=== PATIENT | male | born 1955 | race Caucasian/White ===

== ENCOUNTER → 2022-02-07 | Outpatient (CLI) | payer MEDICARE ==
[2022-02-07 14:12] LABS: INR 1.18; PROTHROMBIN TIME 15.5 SECONDS (12.7-14.5)
[2022-02-07 14:29] LABS: HEPATITIS B SURFACE ANTIBODY NEGATIVE (POSITIVE); HEPATITIS B SURFACE ANTIGEN NEGATIVE (NEGATIVE)
== END ==
LOC: M PLALAB 09:51
PROVIDERS: ATTEND Internal Medicine Infectious Disease
DX: K70.31 Alcoholic cirrhosis of liver with ascites (principal); Z86.19 Personal history of other infectious and parasitic diseases

== ENCOUNTER → 2022-02-19 | Outpatient (CLI) | payer MEDICARE ==
[2022-02-19 14:14] LABS: FREE T4 1.15 NG/DL (0.76-1.46); TOTAL PROTEIN 7.7 GM/DL (6.4-8.2)
[2022-02-19 14:42] LABS: VITAMIN B12 LEVEL 1639 PG/ML
[2022-02-19 14:43] LABS: FOLATE > 24.0 NG/ML
[2022-02-19 15:19] LABS: HEMOGLOBIN A1c 5.6 %
== END ==
LOC: M PLALAB 10:31
PROVIDERS: ATTEND Psychiatry & Neurology Neurology
DX: E53.8 Deficiency of other specified B group vitamins (principal); E11.9 Type 2 diabetes mellitus without complications; E07.9 Disorder of thyroid, unspecified; G62.9 Polyneuropathy, unspecified

== ENCOUNTER 2022-09-02 10:41 | Day surgery (SDC) | payer MEDICARE ==
[~2022-09-02] VITALS: Ht 180.3 cm; Wt 82.9 kg
[~2022-09-02 10:41] MED LIST: ALBU8.5H INH; CALC600T61 PO; CITA20TA6 PO; CVS1CAP5 PO; FOLI1TAB11 PO; FURO40TA2 PO; GABA-282 PO; K-TA10TA PO; LIDOCAINE 2% 100MG/5ML SDV (FOR ANES.) As Ordered ONE; MAGN400T2 PO; METH-1165 PO; NS 1,000 ML IV ONE; OMEP-173 PO; SODI1TAB12 PO; SPIR12.9 INH; SPIR50TA4 PO; TAMS1CAP17 PO; THIA100TA PO; VITMTA PO; [UNRECOGNIZED DRUG - CODE] PO; propofoL 200 MG/20 ML VIAL As Ordered ONE
[2022-09-02 13:14] VITALS: BP 116/72
== END 2022-09-02 13:19 | disposition home or self-care (01) ==
LOC: M OPP 10:41
PROVIDERS: ATTEND Internal Medicine Gastroenterology
DX: K22.89 Other specified disease of esophagus (principal); K44.9 Diaphragmatic hernia without obstruction or gangrene; K31.7 Polyp of stomach and duodenum; K74.60 Unspecified cirrhosis of liver; B19.10 Unspecified viral hepatitis B without hepatic coma; I10 Essential (primary) hypertension; J44.9 Chronic obstructive pulmonary disease, unspecified; N40.0 Benign prostatic hyperplasia without lower urinary tract symptoms; F17.210 Nicotine dependence, cigarettes, uncomplicated; Z79.1 Long term (current) use of non-steroidal anti-inflammatories (NSAID); Z79.51 Long term (current) use of inhaled steroids; Z79.52 Long term (current) use of systemic steroids; Z79.82 Long term (current) use of aspirin; Z79.891 Long term (current) use of opiate analgesic; Z79.899 Other long term (current) drug therapy; Z88.0 Allergy status to penicillin; Z85.51 Personal history of malignant neoplasm of bladder

== ENCOUNTER 2023-04-30 07:48 | Day surgery (SDC) | payer MEDICARE, MEDICAID ==
[~2023-04-30] VITALS: Ht 180.3 cm; Wt 94.3 kg
[~2023-04-30 07:48] MED LIST changes: +ASPI81TA26 PO; +BSS IRRIG/VANCO(10MG)/TOBRA(5MG)/EPINEPH(1:1000-0.5CC)500ML BAG-ORONLY IR ONE; +CALC-364; +CYCLOPENTOLATE 1% OPHTH SOLN 2ML BTL OD SCH; -K-TA10TA PO; +LIDOCAINE 1% SDV 5ML VIAL As Ordered ONE; -LIDOCAINE 2% 100MG/5ML SDV (FOR ANES.) As Ordered ONE; +LIDOCAINE 3.5 % 1ML OPHTH TOPICAL GEL OU ONE; +MIDAZOLAM INJ 2MG/2ML VIAL As Ordered ONE; -NS 1,000 ML IV ONE; +OFLOXACIN 0.3 % (OCUFLOX) OPTH SOL 5ML OD ONE; +PHENYLEPHRINE 10% OPHTH SOL 5ML OD PRN; +PHENYLEPHRINE 2.5% OPHTH SOL 2ML OD SCH; +POTA-164 PO; +TROPICAMIDE 1% OPHTH SOLN 15ML OD SCH; +fentaNYL 100 MCG/2 ML INJECTION As Ordered ONE; -propofoL 200 MG/20 ML VIAL As Ordered ONE
[2023-04-30] MEDS ORDERED: CEFUROXIME 1MG/0.1ML INTRACAMERAL INJ As Ordered ONE (08:58)
[2023-04-30 09:33] VITALS: BP 105/64; TEMP 97.2; O2SAT 95
[2023-05-12] MEDS ORDERED: ROSU20TA61 PO (08:20)
== END 2023-04-30 09:55 | disposition home or self-care (01) ==
LOC: M SDC 07:48
PROVIDERS: ATTEND Ophthalmology
DX: H25.11 Age-related nuclear cataract, right eye (principal); H57.03 Miosis; I10 Essential (primary) hypertension; E78.00 Pure hypercholesterolemia, unspecified; R12 Heartburn; K74.60 Unspecified cirrhosis of liver; J44.9 Chronic obstructive pulmonary disease, unspecified; F17.210 Nicotine dependence, cigarettes, uncomplicated; Z88.0 Allergy status to penicillin; Z79.899 Other long term (current) drug therapy
CPT/HCPCS: 66982; J0697; J2250; J3010; V2632

== ENCOUNTER 2023-05-14 09:04 | Day surgery (SDC) | payer MEDICARE, MEDICAID ==
[~2023-05-14] VITALS: Ht 180.3 cm; Wt 93.4 kg
[~2023-05-14 09:04] MED LIST changes: +CEFUROXIME 1MG/0.1ML INTRACAMERAL INJ As Ordered ONE; -CYCLOPENTOLATE 1% OPHTH SOLN 2ML BTL OD SCH; +CYCLOPENTOLATE 1% OPHTH SOLN 2ML BTL OS SCH; -MIDAZOLAM INJ 2MG/2ML VIAL As Ordered ONE; -OFLOXACIN 0.3 % (OCUFLOX) OPTH SOL 5ML OD ONE; +OFLOXACIN 0.3 % (OCUFLOX) OPTH SOL 5ML OS ONE; -PHENYLEPHRINE 10% OPHTH SOL 5ML OD PRN; +PHENYLEPHRINE 10% OPHTH SOL 5ML OS PRN; -PHENYLEPHRINE 2.5% OPHTH SOL 2ML OD SCH; +PHENYLEPHRINE 2.5% OPHTH SOL 2ML OS SCH; +ROSU20TA61 PO; -TROPICAMIDE 1% OPHTH SOLN 15ML OD SCH; +TROPICAMIDE 1% OPHTH SOLN 15ML OS SCH; -fentaNYL 100 MCG/2 ML INJECTION As Ordered ONE
[2023-05-14] MEDS ORDERED: MIDAZOLAM INJ 2MG/2ML VIAL As Ordered ONE (11:27)
[2023-05-14] MEDS ORDERED: fentaNYL 100 MCG/2 ML INJECTION As Ordered ONE (11:28)
[2023-05-14 12:22] VITALS: BP 122/72; TEMP 97.3; O2SAT 99
== END 2023-05-14 12:40 | disposition home or self-care (01) ==
LOC: M SDC 09:04
PROVIDERS: ATTEND Ophthalmology
DX: H26.9 Unspecified cataract (principal); H57.03 Miosis; I10 Essential (primary) hypertension; E78.00 Pure hypercholesterolemia, unspecified; Z79.899 Other long term (current) drug therapy; Z79.82 Long term (current) use of aspirin; F17.210 Nicotine dependence, cigarettes, uncomplicated; Z88.0 Allergy status to penicillin
CPT/HCPCS: 66982; J0697; J2250; J3010; V2632